=== PATIENT | male | born 1985 | race African-American/Black ===

== ENCOUNTER 2022-06-14 11:43 | Emergency (ER) | payer OTHER, SELFPAY ==
--- NOTE | 2022-06-14 11:46 | ED.EXTPRO ---
HPI - Extremity Problem General Chief complaint: Extremity Problem,Nontraumatic Stated complaint: Bilateral Knee and Thigh Stiffness Time Seen by Provider: 06/14/22 11:45 Source: patient Mode of arrival: ambulatory Limitations: no limitations History of Present Illness HPI Narrative: Iban is a 37-year-old male patient presenting to the clinic today with complaints of bilateral knee and thigh stiffness/swelling. He reports this has been ongoing for the last few days. He denies any shortness of breath or chest pain. He denies any cardiac history. He is a type 1 diabetic, history of hyperlipidemia, and takes lisinopril as a kidney protectant. He denies any fever or chills. Stiffness/tightness of the lower extremities is worse in the morning when he is getting up but he denies any pain. His PCP did blood work 1 month ago and all of his electrolytes were within normal limits at that time. States his hemoglobin A1c was 9. Related Data Home Medications Medication Instructions Recorded Confirmed insulin glargine 100 unit/mL (3 62 unit subcut QPM 02/01/21 06/14/22 mL) subcutaneous pen (Basaglar KwikPen U-100 Insulin) lisinopril 20 mg tablet 20 mg PO DAILY 02/01/21 06/14/22 ezetimibe 10 mg tablet 10 mg PO DAILY 06/14/22 06/14/22 insulin lispro 100 unit/mL See Rx Instructions .Route .COMPLEX 06/14/22 06/14/22 subcutaneous pen (Admelog SoloStar U-100 Insulin lispro) Allergies Allergy/AdvReac Type Severity Reaction Status Date / Time No Known Allergies Allergy Verified 06/14/22 11:52 Review of Systems Review of Systems: Pertinent positives per HPI. Patient denies any fever, chills, rash, headache, visual changes, dizziness, cough, runny nose, sore throat, shortness of breath, chest pain, palpitations, nausea, vomiting, diarrhea, constipation, abdominal pain, or any urinary issues. [facility] Past Medical History Medical History BMI 33.0-33.9,adult Diabetes Diabetes, type I Encounter to establish care Hyperlipidemia Hypertension Lumbago with sciatica, right side Seasonal allergies Tobacco abuse Family History Family History Grandparent Diabetes mellitus Social History Social History Years smoked: 10 Smoking status: Current every day smoker Tobacco type: cigarettes Alcohol intake: current Substance use: never Comments At the time of my signature, I reviewed and agree with the nursing past medical, surgical, social, and family history. There is no relevant family history pertinent to the patient complaint. Exam Narrative: General: Well-developed, well nourished, in no apparent distress Head: Normocephalic, atraumatic. Cardio: Regular rate and rhythm, s1 and s2 normal, no murmur appreciated. Resp: Clear to auscultation bilaterally, no rhonchi, rales, wheezing or rubs. Musculoskeletal: No deformity, non-tender to palpation, grossly normal range of motion, muscle strength strong and equal, peripheral pulse strong,2+ edema in the lower extermity/1+ pitting edema to the anterior thighs bilaterally, no cyanosis, normal gait and station Course Course Emergency Course: Portions of this record may have been created with voice recognition software. Level of Care: Express Care Visit Vital Signs Vital signs: Vital Signs Temperature 36.3 C L 06/14/22 11:55 Pulse Rate 119 H 06/14/22 11:55 Respiratory Rate 16 06/14/22 11:55 Blood Pressure 136/98 H 06/14/22 11:55 Pulse Oximetry 100 06/14/22 11:55 Oxygen Delivery Room Air 06/14/22 11:55 Temperature 36.3 C L 06/14/22 11:55 Pulse Rate 119 H 06/14/22 11:55 Respiratory Rate 16 06/14/22 11:55 Blood Pressure 136/98 H 06/14/22 11:55 Pulse Oximetry 100 06/14/22 11:55 Oxygen Delivery Room Air 06/14/22 11:55 Vital signs reviewed MDM -
[2022-06-14 11:55] VITALS: BP 136/98; PULSE 119; RESP 16; TEMP 36.3; O2SAT 100
== END 2022-06-14 13:00 | disposition home or self-care (01) ==
PROVIDERS: Emergency Provider Nurse Practitioner Family; PCP Family Medicine Sports Medicine
DX: R60.0 Localized edema (principal); F17.210 Nicotine dependence, cigarettes, uncomplicated; E10.9 Type 1 diabetes mellitus without complications
CPT/HCPCS: 99213; G0463

== ENCOUNTER 2022-09-18 00:44 | Day surgery (SDC) | payer OTHER, SELFPAY ==
[2022-09-15 14:19] VITALS: BMI 32.3
[2022-09-18] VITALS (9 sets, daily range): BP systolic 122–140; BP diastolic 83–106; PULSE 113–120; RESP 12–22; TEMP 36.7; O2SAT 98–100; BMI 33.1
[2022-09-18 11:06] LABS: Basophils Percent Auto 0.1 % (0.2-1.2); Eosinophils Absolute Auto 0.1 K/mm3 (0-0.3); Eosinophils Percent Auto 0.8 % (0-4.4); Hematocrit 31.3 % (42.0-52.0); Hemoglobin 9.7 g/dL (14.0-18.0); Immature Granulocyte Absolute 0.04 K/mm3 (0.00-0.031); Immature Granulocyte Percent A 0.5 % (0-0.5); Lymphocytes Absolute Auto 1.53 K/mm3 (0.9-3.2); Lymphocytes Percent Auto 19.8 % (18.3-44.2); Mean Corpuscular Hemoglobin 26.1 pg (26-34); Mean Corpuscular Volume 84.4 fl (80-100); Mean Platelet Volume 8.8 fl (7.4-10.4); Monocytes Absolute Auto 0.7 K/mm3 (0.1-0.6); Monocytes Percent Auto 9.1 % (2.6-8.5); Neutrophils Absolute Auto 5.4 K/mm3 (1.3-6.7); Neutrophils Percent Auto 69.7 % (45.5-73.1); Platelet Count Result 503 k/mm3 (150-375); Red Blood Count 3.71 M/mm3 (4.6-6.20); Red Cell Distribution Width 21.9 % (11.5-14.5); White Blood Count 7.7 K/mm3 (4.5-10.0)
[2022-09-18 11:23] LABS: Anion Gap 4 mmol/L (8-16); Blood Urea Nitrogen 5 mg/dL (9-20); Calcium 8.4 mg/dL (8.4-10.2); Carbon Dioxide 32 mmol/L (22-30); Chloride 104 mmol/L (98-107); Estimated CRCL calculation 210 ml/min; Estimated Glomerular Filt Rate > 60; Glucose 158 mg/dL (65-110); Potassium 3.9 mmol/L (3.4-5.0); Sodium 140 mmol/L (137-145)
[2022-09-18 11:31] LABS: INR 1.2; Prothrombin Time 15.7 Seconds (11.1-14.7)
--- NOTE | 2022-09-18 11:50 | WPDMODSED ---
Moderate Sedation Note-Pt Data Patient Data Diagnosis: newly diagnosed cardiomyopathy Present Complaint: shortness of breath Procedure to be performed/Plan: left heart catheterization Allergies Allergy/AdvReac Type Severity Reaction Status Date / Time No Known Allergies Allergy Verified 09/15/22 14:37 Home Medications Medication Instructions Recorded Confirmed Type insulin glargine 100 unit/mL (3 62 unit subcut QPM 02/01/21 09/18/22 History mL) subcutaneous pen (Basaglar KwikPen U-100 Insulin) lisinopril 20 mg tablet 20 mg PO DAILY 02/01/21 09/18/22 History ezetimibe 10 mg tablet 10 mg PO DAILY 06/14/22 09/18/22 History furosemide 40 mg tablet 40 mg PO DAILY 7 days #7 tabs 06/14/22 09/18/22 Rx insulin lispro 100 unit/mL See Rx Instructions .Route .COMPLEX 06/14/22 09/18/22 History subcutaneous pen (Admelog SoloStar U-100 Insulin lispro) Current Medications: Active Medications Sodium Chloride (Normal Saline Iv) 500 mls @ 100 mls/hr IV CONT .Q5H ELMO Sedation/Anesthesia: No previous sedation/anesthesia problems (including family history). [facility] Past Medical History Medical History BMI 33.0-33.9,adult Diabetes Diabetes, type I Encounter to establish care Hyperlipidemia Hypertension Lumbago with sciatica, right side Seasonal allergies Tobacco abuse Family History Family History Grandparent Diabetes mellitus Social History Social History Years smoked: 10 Smoking status: Light tobacco smoker Tobacco type: cigarettes Alcohol intake: current Drinks per week: 1 Substance use: current Substance use type: marijuana Living arrangements: with family Spiritual care concerns: No Mod Sed Physical Exam Physical Exam Pre Procedural Exam: Normal: Neck, Throat, Airway, Lungs, Heart Rate, Heart Rhythm, Neuro Exam and Extremities and Variation: Appearance ( obese gentleman no apparent distress) and Heart Size ( PMI difficult to palpate because of obesity) Hours since solid foods: 12 Hours since liquid intake: 12 Mallampati Classification: class III Internal Medicine - PN: Obj Da Vital Signs Vital Signs: Vital Signs - 24 hr 09/18/22 10:38 Temperature 36.7 C Pulse Rate 114 H Respiratory Rate 15 Blood Pressure 122/97 H Pulse Oximetry 100 Oxygen Delivery Room Air Meds/Results Medications: Active Medications Generic Name Dose Route Start Last Admin Trade Name Freq PRN Reason Stop Dose Admin Sodium Chloride 500 mls @ 100 mls/hr 09/18/22 10:00 Normal Saline Iv IV CONT .Q5H ELMO Labs 09/18/22 10:20 09/18/22 10:20 Labs: Laboratory Results - last 24 hr 09/18/22 10:20 WBC 7.7 RBC 3.71 L Hgb 9.7 L Hct 31.3 L MCV 84.4 MCH 26.1 MCHC 31.0 L RDW 21.9 H Plt Count 503 H MPV 8.8 Immature Gran % (Auto) 0.5 Neut % (Auto) 69.7 Lymph % (Auto) 19.8 Luna % (Auto) 9.1 H Eos % (Auto) 0.8 Baso % (Auto) 0.1 L Lymph # (Auto) 1.53 Luna # (Auto) 0.7 H Eos # (Auto) 0.1 Baso # (Auto) 0.0 Abs Immat Gran (auto) 0.04 H Absolute Neuts (auto) 5.4 Absolute Nucleated RBC 0.0 Nucleated RBC % 0.0 PT 15.7 H INR 1.2 Sodium 140 Potassium 3.9 Chloride 104 Carbon Dioxide 32 H Anion Gap 4 L BUN 5 L Creatinine 0.60 L Estim Creat Clear Calc 210 Estimated GFR > 60 Glucose 158 H Calcium 8.4 ASA Classification/Sedation ASA Classification/Sedation ASA Class: III Emergent: No Risks: Risks, benefits and alternatives explained and patient/family accepted plan for sedation. Patient re-evaluated immediately prior to sedation.
--- NOTE | 2022-09-18 12:28 | WPDCARDPROC ---
Cardiac Cath Procedure Note Date of procedure:: 09/18/22 Performing physician:: Rufus Fall MD Indication:: newly diagnosed left ventricular systolic dysfunction longstanding type 1 diabetes Brief clinical history:: this is a 37-year-old man recently seen in referral because of left ventricular systolic dysfunction. Been complaining of worsening shortness of breath and unfortunately echocardiogram has been found to show severe left ventricular systolic dysfunction. In the setting of longstanding type 1 diabetes angiography has been recommended Procedure Procedure performed:: left ventriculogram coronary angiogram femoral artery angiogram Angio-Seal to right femoral artery Sedation/Medication given:: fentanyl 100 mg Versed 2 mg case start time 11:57 a.m. case end time 12:24 p.m. Access site:: right femoral artery Estimated blood loss:: 40-50 cc Procedure note:: patient was brought to the cardiac catheterization lab in the postabsorptive state the right femoral triangle was prepared and draped the usual fashion. 1% lidocaine was infiltrated locally. Using the modified Seldinger technique the femoral artery was punctured and a 5 Chadian vascular sheath was placed. This is a obese patient with somewhat difficult arterial access a long needle was used to access the femoral artery. Following this left ventriculography was performed and left-sided hemodynamics were demonstrated using a 5 [place] angled pigtail catheter. After this the left coronary artery was injected in multiple projections using of 5 [place] FL4 catheter. The right coronary artery was engaged and injected using a 5 [place] JR4 catheter. The cineangiograms were then reviewed and the case was terminated. An angiogram was done of the femoral artery through the sheath after which a 6 [place]adian Angio-Seal device was used to provide hemostasis. Patient was recovered in the [facility] lab technician and will be taken to recovery the procedure was well tolerated there was no evidence of groin hematoma upon leaving the [facility] lab technician. Findings:: Hemodynamics: Central aortic pressure is 128 over 90 left ventricle 128 over 20 end-diastolic pressure 44. Left ventricle is markedly dilated there is profound global systolic hypocontractility in all segments with an ejection fraction that appears to be in the vicinity of 15-20%. The left main coronary artery is widely patent the left anterior descending is a large caliber vessel extending down to around the apex the LAD is smooth and angiographically unremarkable in appearance circumflex is a moderate caliber vessel giving rise to the marginal branches. The circumflex system is smooth and angiographically unremarkable in appearance the right coronary artery is large in caliber dominant to the posterior circulation the right coronary artery bifurcates high in the 2nd portion of the artery other than this it is angiographically free of disease. Conclusion:: 1. Right coronary dominant circulation with no angiographic abnormalities 2. left ventricular enlargement with severe global systolic hypokinesia with high LVEDP Rufus Fall MD FAC
== END 2022-09-18 15:36 | disposition home or self-care (01) ==
PROVIDERS: PCP Family Medicine Sports Medicine; Visit Provider Specialist
PROC: 4A023N7 Measurement of Cardiac Sampling and Pressure, Left Heart, Percutaneous Approach (ICD-10-PCS; CPT 93452; principal; 2022-09-18 11:30)
DX: I50.20 Unspecified systolic (congestive) heart failure (principal); R06.02 Shortness of breath; I51.7 Cardiomegaly; E10.9 Type 1 diabetes mellitus without complications; Z72.0 Tobacco use; E78.5 Hyperlipidemia, unspecified
CPT/HCPCS: 36415; 80048; 85025; 85610; 93458; C1760; C1887; C1894; G0269; J1644; J2250; J3010; J7040